=== PATIENT | female | born 1980 | race Caucasian/White ===

== ENCOUNTER 2022-07-24 10:22 | Outpatient (CLI) | payer BC, SELFPAY ==
[2022-07-24 21:46] LABS: Alanine Aminotransferase* 40 U/L (4-35); Albumin* 4.3 g/dL (3.3-5.0); Alkaline Phosphatase* 138 U/L (40-150); Aspartate Amino Transferase* 42 U/L (12-35); Bilirubin Total* 0.4 mg/dL (0.1-1.5); Blood Urea Nitrogen* 14 mg/dL (5-24); Calcium* 9.2 mg/dL (8.4-10.6); Carbon Dioxide* 26 mmol/L (20-32); Chloride* 103 mmol/L (96-114); Cholesterol* 167 mg/dL (90-199); Creatinine* 0.8 mg/dL (0.5-1.5); Estimated Glomerular Filt Rate 94 ml/min; Glucose* 96 mg/dL (60-115); HDL Cholesterol* 54 mg/dL (>=50); LDL Cholesterol Calculated 80 mg/dL (<100); Potassium* 4.3 mmol/L (3.6-5.1); Sodium* 137 mmol/L (135-149); Total Protein* 6.9 g/dL (6.0-8.3); Triglycerides* 165 mg/dL (40-149)
== END 2022-07-24 10:23 | disposition home or self-care (01) ==
PROVIDERS: PCP Physician Assistant Medical; Visit Provider Physician Assistant Medical
DX: Z00.00 Encounter for general adult medical examination without abnormal findings (principal); R53.83 Other fatigue; F41.9 Anxiety disorder, unspecified; Z13.6 Encounter for screening for cardiovascular disorders; Z13.29 Encounter for screening for other suspected endocrine disorder
CPT/HCPCS: 80053; 80061; 84443

== ENCOUNTER 2022-09-03 15:13 | Outpatient (CLI) | payer BC, SELFPAY | END 2022-09-03 15:14 | disposition home or self-care (01) | LOC: RAD 15:17 | PROVIDERS: PCP Physician Assistant Medical; Visit Provider Physician Assistant Medical | DX: Z82.49 Family history of ischemic heart disease and other diseases of the circulatory system (principal) | CPT/HCPCS: 93306; 95806 ==

== ENCOUNTER 2022-09-03 19:35 | Outpatient (CLI) | payer BC, SELFPAY ==
--- NOTE | 2022-09-09 13:01 | W.PM.SLEEP ---
Sleep Study Details Details Interpreting Provider: Ed Son MD Date of Sleep Study: 09/03/22 Sleep Study Details: STUDY TYPE:? Home ? BMI:? 35.4 ORDERING PROVIDER:? Martin INDICATION:? Concerns about sleep apnea ? SLEEP SUMMARY:? 617 monitored minutes RESPIRATORY SUMMARY:? AHI is 10.6 with minimal positional variation Low oxygen 87 0.1% of study oxygen less than 90% Snoring% 5.5 PERIODIC LIMB MOVEMENTS OF SLEEP:? Not recorded CARDIAC:? 53-96, mean 70.8 IMPRESSION:? Mild obstructive sleep apnea RECOMMENDATION: Treatment options would include CPAP AutoSet 4-17 versus dental appliance. Weight loss is also recommended
== END 2022-09-03 19:36 | disposition home or self-care (01) ==
LOC: SLEEP 19:36
PROVIDERS: PCP Physician Assistant Medical; Visit Provider Physician Assistant Medical
DX: G47.33 Obstructive sleep apnea (adult) (pediatric) (principal)
CPT/HCPCS: 95806

== ENCOUNTER 2022-11-03 08:58 | Outpatient (CLI) | payer BC, SELFPAY ==
--- NOTE | 2022-11-03 09:15 | CRLHL7_ITS ---
For Patients: As a result of the Cures Act, medical imaging exams and procedure reports are released immediately into your electronic medical record. You may view this report before your referring provider. If you have questions, please contact your health care provider. BILATERAL SCREENING MAMMOGRAM WITH COMPUTER-AIDED DETECTION AND TOMOSYNTHESIS TECHNIQUE: CC and MLO views were obtained. These mammographic images have been obtained using full-field digital technique. These mammographic images were interpreted with the benefit of computer-aided detection. Breast Tomosynthesis was used in this interpretation. COMPARISON FILM: 10/11/21, 07/13/20, 05/23/19. FINDINGS: There are scattered areas of fibroglandular density IMPRESSION: There is no radiographic evidence for malignancy. ASSESSMENT: BI-RADS Category 1: Negative RECOMMENDATION: Routine screening mammogram in 1 year. A lay language report of this examination will be provided to the patient. Gianni Hernandez M.D. Diagnostic Radiologist [email or web address] Transcribed: 1:14 p.surendra tobias/Dictated by: Gianni Hernandez MD @ 11/03/2022 12:01:00 PM (Electronically Signed)
== END 2022-11-03 08:59 | disposition home or self-care (01) ==
PROVIDERS: PCP Physician Assistant Medical; Visit Provider Physician Assistant Medical
DX: Z12.31 Encounter for screening mammogram for malignant neoplasm of breast (principal)
CPT/HCPCS: 77063; 77067

== ENCOUNTER 2022-12-31 15:20 | Emergency (ER) | payer BC, SELFPAY ==
[2022-12-31 15:34] VITALS: BP 166/87; PULSE 76; TEMP 36.1; O2SAT 99; BMI 33.7
--- NOTE | 2022-12-31 16:18 | ED_ITS ---
HPI - Nausea/Vomiting/Diarrhea General Time Seen by Provider: 16:19 Date Seen: 12/31/22 Chief complaint: Nausea/Vomiting Stated complaint: Dizzy Headache Nausia Time Seen by Provider: 12/31/22 16:17 Source: patient Mode of arrival: ambulatory Limitations: no limitations History of Present Illness HPI Narrative: Shania is a very pleasant 42-year-old female with a history of migraines who comes to the emergency room for headache, feeling weird in her head and difficulty walking. Patient states that she had the onset of a headache last night that she describes as more right sided. She states that this was not like her normal migraines that she gets and it was different. She notes that last night she felt like she was starting to get nauseated with any movement. She also notes that she was having a hard time focusing on things that were close up. Today she notes that is much worse and that with any head movement at all she feels like she is spinning. She denies the room moving around her but feels like she is moving. She states that she had to hang onto objects while she was walking. Today the headache is on the right roman catholic right side of her face and now her right ear hurts. She also notes some tingling in her head right greater than left. She denies any hearing problems are high-pitched sounds. She has not had any head trauma. She denies fever cold symptoms. She is normally a healthy person. Patient has had shingles in the past but it was on her abdomen. Her history of migraines involves with a peripheral vision loss which is not happening today. Patient denies difficulty with speech neck pain trauma fever chills cough cold congestion. She is nauseated but has not had any vomiting. No diarrhea. No limb weakness individually. Associated nausea: Yes Related Data Home Medications Medication Instructions Recorded Confirmed cetirizine 10 mg tablet 10 mg PO DAILY 07/24/22 10/20/22 ibuprofen 200 mg tablet mg PO .Qid Prn 07/24/22 10/20/22 sumatriptan succinate 50 mg tablet 50 mg PO .As Needed PRN 07/24/22 10/20/22 Previous Rx's Medication Instructions Recorded bupropion HCl 150 mg 24 hr tablet, 150 mg PO QAM #90 tabs 08/13/22 extended release amoxicillin 875 mg-potassium 1 tab PO BID #20 tabs 10/20/22 clavulanate 125 mg tablet escitalopram oxalate 10 mg tablet 10 mg PO QDAY #90 tabs 10/31/22 meclizine 25 mg tablet 25 mg PO TID PRN dizziness #30 tabs 12/31/22 Allergies Allergy/AdvReac Type Severity Reaction Status Date / Time Shellfish Allergy Severe Anaphylaxis Uncoded 10/20/22 08:34 Cefaclor AdvReac Uncoded 10/20/22 08:34 Penicillin AdvReac rash Uncoded 10/20/22 08:34 Pertussis vaccine AdvReac swelling Uncoded 10/20/22 08:34 Sulfa Antibiotics AdvReac Uncoded 10/20/22 08:34 Tetanus toxoid AdvReac swelling Uncoded 10/20/22 08:34 Review of Systems Status of ROS: Reports: 10 or more systems reviewed and unremarkable except as noted in History and below Const: Denies: fever or chills Eyes: Reports: blurry vision ENMT: Reports: vertigo; Denies: throat pain, neck pain or throat swelling Cardio: Denies: chest pain, swelling of feet/ankles or shortness of breath with exertion Resp: Denies: shortness of breath or cough GI: Reports: nausea; Denies: abdominal pain, vomiting or diarrhea : Denies: painful urination Musculo: Denies: back pain, neck pain or extremity pain Integ/Breast: Denies: rash Neuro: Reports: headache, lack of coordination (When walking) and vertigo; Denies: numbness in extremities, weakness in extremities or confusion Allergy/Immuno: Denies: throat swelling PFSH PFSH Medical History Mesenteric cyst Spina bifida occulta Surgical History History of appendectomy History of section History of cholecystectomy History of endometrial ablation History of loop electrical excision procedure (LEEP) History of ovarian cystectomy Status post laparoscopic hysterectomy Family History Paternal Grandfather Lymphoma Colorectal cancer Maternal Grandmother Hyperlipidemia High blood pressure Sister Anxiety disorder Paternal Grandmother Diabetes Social History Narrative: Social history the patient is she is a lras-da-xygb mom she has 3 children ages 17, 16, 11 She does not smoke cigarettes use other tobacco products for alcoholic beverages per week no other drugs. She does not exercise Smoking Status: Never smoker How often do you have a drink containing alcohol: never AUDIT-C Alcohol total score: 0 Non-prescribed substance use: denies use Little interest or pleasure in doing things: not at all Feeling down, depressed, or hopeless: not at all service: No Exam Narrative: Exam Narrative: Shania is alert and oriented. She is mentating normally with a GCS of 15. Head is atraumatic normocephalic. EOM is full with pupils equal round and reactive. She has extreme nystagmus when looking to the left that is reproducible. Eyebrow raise intact. TMs bilaterally without erythema. There is no evidence of vesicles or rash in that ear canals. No erythema of the ear itself. Initially there appeared to be a blanchable rash on the neck just beneath the ear but with this is noted to be also present on the left. There are no petechiae noted. Oral cavity with moist mucous membranes. Neck is supple. Heart with regular rate and rhythm and lungs are clear in all lung mejia. Abdomen soft nontender. Lower extremities without edema no calf tenderness. Eyebrow raise smile all symmetrical. Tongue is midline. Upper extremity stre ngth and motor is intact with a negative Romberg. Finger to nose bilaterally intact. Able to lift both lower extremities. I did not note any neurological deficits. However any movement of patient's head does increased symptoms. Const: Vital Signs, click to edit/add: Vital Signs - 24 hr 12/31/22 15:34 12/31/22 17:22 Temperature 96.9 F L Pulse Rate [Pulse Oximeter] 76 88 Respiratory Rate 16 Blood Pressure [Ri ght Upper Arm] 166/87 H 146/80 H Pulse Oximetry 99 97 Oxygen Delivery Me thod Room Air Room Air Course Course Hospital Course: Differential diagnosis includes but is not limited to benign positional vertigo, shingles, migraine, intracranial bleed, stroke, anxiety, meningitis, viral syndrome, arrhythmia, But will have IV placed and patient will be given Ativan 0.5 mg IV. Will proceed with head CT as patient describes wide-based gait. I am unable to get her out of bed at this time given the significant ache symptoms she is experiencing with any movement. Of note however and reassuring is that she is able to extinguished is sensation when she holds still. Will also add labs to include CBC, comprehensive panel, urinalysis, CRP, LFTs, COVID flu and RSV. Reevaluation(s) Reevaluation #1: Patient did not note significant relief with Ativan 0.5 mg. I do note that she is moving a little bit better and seems to be more conversive however. Will follow up with Benadryl 25 mg IV. Reevaluation #2: Patient does note improvement with the Benadryl. I am able to get her out of bed she is able to stand. She is able to stand with her feet closer together. Initially wide-based gait but this is more I believe not because of an ataxia because she use but because she is afraid of falling. She is able to side step stand on her tiptoes. When she was standing on her heels she did have a little bit of difficulty with balance. She is able to get herself back into bed at this time. Again, able to extinguish the feeling of spinning and movement if she keeps her head still. Vital Signs Vital signs: Initial Vital Signs Temperature 96.9 F L 12/31/22 15:34 Temperature Source Temporal Artery Scan 12/31/22 15:34 Pulse Rate 76 12/31/22 15:34 Pulse Rhythm 12/31/22 15:34 Pulse Strength 3+ Normal 12/31/22 15:34 Blood Pressure 166/87 H 12/31/22 15:34 Blood Pressure Mean 113 12/31/22 15:34 Blood Pressure Position Sitting 12/31/22 15:34 Pulse Oximetry 99 12/31/22 15:34 Oxygen Delivery Method 12/31/22 15:34 Vital Signs Temperature 96.9 F L 12/31/22 15:34 Pulse Rate 76 12/31/22 15:34 Blood Pressure 166/87 H 12/31/22 15:34 Pulse Oximetry 99 12/31/22 15:34 Oxygen Delivery Method 12/31/22 15:34 Temperature 96.9 F L 12/31/22 15:34 Pulse Rate 88 12/31/22 17:22 Respiratory Rate 16 12/31/22 17:22 Blood Pressure 146/80 H 12/31/22 17:22 Pulse Oximetry 97 12/31/22 17:22 Oxygen Delivery Method 12/31/22 17:22 MDM - Nausea/Vomiting/Diarrhea MDM Narrative Medical decision making narrative: 1. Vertigo-patient has negative head CT and improvement with Benadryl. I do believe that this is likely peripheral rather than central vertigo as she is able to extinguish symptoms with minimizing head movement. I do not note evidence of meningitis with no neck stiffness. Patient has no petechiae noted. I suspected that the facial tingling burning and ear pain may be prodromal symptoms to shingles and we did discuss this today. If she would have the onset of any vesicles or rash would want to have her seen in the emergency room for initiation of antiviral medications. Initial rash noted has faded during her times here and was bilateral. This was not a petechial rash. Patient should to continue on Benadryl this evening as needed. Meclizine 25 mg p.o. t.i.d. p.r.n. number 30 called into her pharmacy. She will have to pick this up tomorrow. She will need to avoid alcohol driving while she is using this medication. 2. Disposition-patient feels comfortable going home. She is much improved from her initial presentation with the use of Benadryl IV. She has remained afebrile with reassuring vital signs during her time here I do acknowledge she had a slight elevation of her white count and CRP but I do not find evidence of bacterial infection or suggestion of and meningitis or encephalitis at this time. However, should she have the onset of fever, worsening symptoms, vomiting, change in personality I asked that she return immediately to the ER. Her mother is here to witness our conversation today. Medical Records Attestation: I reviewed the patient's medical records. Lab Data Attestation: I reviewed the patient's lab results. Labs: Lab Results 12/31/22 12/31/22 12/31/22 Range/Units 16:46 16:47 17:05 WBC 11.42 H (4.50-11.00) K/uL RBC 4.76 (4.00-5.20) m/uL Hgb 14.6 (12.0-16.0) gm/dL Hct 43.7 (33.0-51.0) % MCV 92 (80-100) fL MCH 31 (26-34) pg MCHC 33 (32-36) gm/dL RDW Coeff of Gi 13.5 (11.5-15.5) % Plt Count 325 (140-440) K/uL Neut % (Auto) 75.4 H (42.0-72.0) % Lymph % (Auto) 16.2 L (20-44) % [place] % (Auto) 5.9 (0.0-11.0) % Eos % (Auto) 1.9 (0.0-7.0) % Baso % (Auto) 0.3 (0.0-3.0) % Neut # (Auto) 8.60 H (1.7-7.0) K/uL Lymph # (Auto) 1.90 (0.90-2.90) K/uL [place] # (Auto) 0.70 (0.00-0.90) K/UL Eos # (Auto) 0.20 (0.00-0.50) K/uL Baso # (Auto) 0.00 (0.00-0.30) K/uL Sodium (135-149) mmol/L Potassium (3.6-5.1) mmol/L Chloride (96-114) mmol/L Carbon Dioxide (20-32) mmol/L BUN (5-24) mg/dL Creatinine (0.5-1.5) mg/dL Estimated Creat Clear Estimated GFR ml/min Glucose (60-115) mg/dL Calcium (8.4-10.6) mg/dL Total Bilirubin (0.1-1.5) mg/dL AST (12-35) U/L ALT (4-35) U/L Alkaline Phosphatase (40-150) U/L C-Reactive Protein (0.5-1.0) mg/dL Total Protein (6.0-8.3) g/dL Albumin (3.3-5.0) g/dL Urine Color Yellow (Yellow) Urine Appearance Clear (Clear) Urine pH 5.5 (5.0-8.5) Ur Specific Hoffman 1.025 (1.000-1.030) Urine Protein Negative (Negative) Urine Glucose (UA) Negative (Negative) Urine Ketones Negative (Negative) Urine Blood Trace-lysed A (Negative) Urine Nitrite Negative (Negative) Urine Bilirubin Negative (Negative) Urine Urobilinogen 0.2 (0.2-1.0) Ur Leukocyte Esterase Negative (Negative) Urine RBC 0-2 (0-2) Urine WBC 0-2 (0-5) Ur Squamous Epith Cells Few (None-Few) Urine Bacteria None (None) SARS-CoV-2 (PCR) Negative SARS-CoV-2 (Negative) Influenza Type A (PCR) Negative PCR FLU A (Negative) Influenza Type B (PCR) Negative PCR FLU B (Negative) RSV (PCR) Negative PCR RSV (Negative) 12/31/22 Range/Units 17:05 WBC (4.50-11.00) K/uL RBC (4.00-5.20) m/uL Hgb (12.0-16.0) gm/dL Hct (33.0-51.0) % MCV (80-100) fL MCH (26-34) pg MCHC (32-36) gm/dL RDW Coeff of Gi (11.5-15.5) % Plt Count (140-440) K/uL Neut % (Auto) (42.0-72.0) % Lymph % (Auto) (20-44) % [place] % (Auto) (0.0-11.0) % Eos % (Auto) (0.0-7.0) % Baso % (Auto) (0.0-3.0) % Neut # (Auto) (1.7-7.0) K/uL Lymph # (Auto) (0.90-2.90) K/uL [place] # (Auto) (0.00-0.90) K/UL Eos # (Auto) (0.00-0.50) K/uL Baso # (Auto) (0.00-0.30) K/uL Sodium 138 (135-149) mmol/L Potassium 4.2 (3.6-5.1) mmol/L Chloride 110 (96-114) mmol/L Carbon Dioxide 20 (20-32) mmol/L BUN 12 (5-24) mg/dL Creatinine 0.7 (0.5-1.5) mg/dL Estimated Creat Clear 100.77 Estimated GFR 110 ml/min Glucose 108 (60-115) mg/dL Calcium 8.9 (8.4-10.6) mg/dL Total Bilirubin 0.5 (0.1-1.5) mg/dL AST 29 (12-35) U/L ALT 36 H (4-35) U/L Alkaline Phosphatase 131 (40-150) U/L C-Reactive Protein 2.1 H (0.5-1.0) mg/dL Total Protein 7.6 (6.0-8.3) g/dL Albumin 4.4 (3.3-5.0) g/dL Urine Color (Yellow) Urine Appearance (Clear) Urine pH (5.0-8.5) Ur Specific Hoffman (1.000-1.030) Urine Protein (Negative) Urine Glucose (UA) (Negative) Urine Ketones (Negative) Urine Blood (Negative) Urine Nitrite (Negative) Urine Bilirubin (Negative) Urine Urobilinogen (0.2-1.0) Ur Leukocyte Esterase (Negative) Urine RBC (0-2) Urine WBC (0-5) Ur Squamous Epith Cells (None-Few) Urine Bacteria (None) SARS-CoV-2 (PCR) (Negative) Influenza Type A (PCR) (Negative) Influenza Type B (PCR) (Negative) RSV (PCR) (Negative) Imaging Data CT scan - head: Attestation: I have reviewed the pertinent imaging results. My impression: I note no acute findings including no evidence of intracranial bleed. Radiologist's impression: CSF spaces: Within normal limits for age. Brain parenchyma: The tobias-white differentiation is normal. No sign of mass, hemorrhage, or midline shift. Skull base and calvarium: The visualized paranasal sinuses and mastoid air cells demonstrate no acute or significant findings. The visualized orbits are grossly unremarkable. No skull fractures. IMPRESSION: Unremarkable noncontrast head CT. ECG Data Interpretation: conveyor monitor without evidence of ectopy or abnormality. Discharge Plan Discharge Clinical Impression: Vertigo Patient Disposition: Home, Self-Care Additional Instructions: Apologies that we do not have meclizine in our [facility] meds machine. You may use Benadryl 25-50 mg or 1-2 tablets every 6 hours as needed for dizziness. Slow movement of the head prior to getting up from sitting or lying down position. Recommend use of meclizine as needed for vertigo-prescription sent to [facility]. Do not use alcohol or drive during the spells. Return or seek medical attention for worsening symptoms, especially fever change in personality, balance issues and as needed. Prescriptions: New meclizine 25 mg tablet 25 mg PO TID PRN (Reason: dizziness) Qty: 30 0RF No Action cetirizine 10 mg tablet 10 mg PO DAILY ibuprofen 200 mg tablet PO .Qid Prn sumatriptan succinate 50 mg tablet 50 mg PO .As Needed PRN Rx Instructions: ONE TAB AT ONSET OF HEADACHE, MAY REPEAT Q2H PRN, MAX 200 MG/24 HRS bupropion HCl 150 mg tablet extended release 24 hr 150 mg PO QAM Qty: 90 1RF Rx Instructions: once daily for mood amoxicillin-pot clavulanate 875-125 mg tablet 1 tab PO BID Qty: 20 0RF escitalopram oxalate 10 mg tablet 10 mg PO QDAY Qty: 90 0RF Rx Instructions: once daily for mod Follow Up/Referrals: Riana Salazar PA-C [Primary Care Provider] - Stand Alone Forms: [employer] Info Instructions
--- NOTE | 2022-12-31 16:37 | CRLHL7_ITS ---
For Patients: As a result of the Century Cures Act, medical imaging exams and procedure reports are released immediately into your electronic medical record. You may view this report before your referring provider. If you have questions, please contact your health care provider. INDICATION: Vertigo TECHNIQUE: CT head without contrast. COMPARISON: None FINDINGS: CSF spaces: Within normal limits for age. Brain parenchyma: The tobias-white differentiation is normal. No sign of mass, hemorrhage, or midline shift. Skull base and calvarium: The visualized paranasal sinuses and mastoid air cells demonstrate no acute or significant findings. The visualized orbits are grossly unremarkable. No skull fractures. IMPRESSION: Unremarkable noncontrast head CT. Dictated by Gianni Gentile MD @ 12/31/2022 5:30:31 PM Please note that all CT scans at this facility use dose modulation, iterative reconstruction, and/or weight-based dosing when appropriate to reduce radiation dose to as low as reasonably achievable. Dictated by: Gianni Gentile MD @ 12/31/2022 17:30:36 (Electronically Signed)
[2022-12-31 16:53] LABS: Appearance Urine Clear (Clear); Bilirubin Urine Negative (Negative); Blood Urine Trace-lysed (Negative); Color Urine Yellow (Yellow); Glucose Urine Negative (Negative); Ketones Urine Negative (Negative); Leukocyte Esterase Urine Negative (Negative); Nitrite Urine Negative (Negative); Protein Urine Negative (Negative); Specific Gravity Urine 1.025 (1.000-1.030); Urobilinogen Urine 0.2 (0.2-1.0); pH Urine 5.5 (5.0-8.5)
[2022-12-31 17:03] LABS: RBC Urine 0-2 (0-2); WBC Urine 0-2 (0-5)
[2022-12-31 17:04] LABS: Squamous Epithelial Cell Urine Few (None-Few)
[2022-12-31 17:18] LABS: Basophils Percent Auto 0.3 % (0.0-3.0); Eosinophils Percent Auto 1.9 % (0.0-7.0); Hematocrit 43.7 % (33.0-51.0); Hemoglobin* 14.6 gm/dL (12.0-16.0); Immature Granulocytes Pct Auto 0.3 %; Lymphocytes Percent Auto 16.2 % (20-44); Mean Corpuscular HGB Conc 33 gm/dL (32-36); Mean Corpuscular Hemoglobin 31 pg (26-34); Mean Corpuscular Volume 92 fL (80-100); Monocytes Percent Auto 5.9 % (0.0-11.0); Neutrophils Percent Auto 75.4 % (42.0-72.0); Platelet Count* 325 K/uL (140-440); RDW Coefficient of Variation % 13.5 % (11.5-15.5); Red Blood Count 4.76 m/uL (4.00-5.20); Slide Review Reflex No; White Blood Count* 11.42 K/uL (4.50-11.00)
[2022-12-31] MEDS: 0.9 % SODIUM CHLORIDE 1000 ml 1,000 ML IV (17:19)
[2022-12-31] MEDS: LORazepam 2 MG/ML inj 0.5 MG IVP (17:20)
[2022-12-31 17:22] VITALS: BP 146/80; PULSE 88; RESP 16; O2SAT 97
[2022-12-31 17:35] LABS: PCR FLU A Negative PCR FLU A (Negative); PCR FLU B Negative PCR FLU B (Negative); PCR RSV Negative PCR RSV (Negative)
[2022-12-31 17:37] LABS: Albumin* 4.4 g/dL (3.3-5.0); Chloride* 110 mmol/L (96-114); Sodium* 138 mmol/L (135-149)
[2022-12-31 17:37] LABS: SARS PCR* Negative SARS-CoV-2 (Negative)
[2022-12-31 17:38] LABS: Potassium* 4.2 mmol/L (3.6-5.1)
[2022-12-31 17:40] LABS: Alkaline Phosphatase* 131 U/L (40-150); Aspartate Amino Transferase* 29 U/L (12-35); Bilirubin Total* 0.5 mg/dL (0.1-1.5); Carbon Dioxide* 20 mmol/L (20-32); Creatinine* 0.7 mg/dL (0.5-1.5); Est. Creatinine Clearance* 100.77; Estimated Glomerular Filt Rate 110 ml/min; Total Protein* 7.6 g/dL (6.0-8.3)
[2022-12-31 17:41] LABS: Alanine Aminotransferase* 36 U/L (4-35); Blood Urea Nitrogen* 12 mg/dL (5-24); Calcium* 8.9 mg/dL (8.4-10.6); Glucose* 108 mg/dL (60-115)
[2022-12-31 17:43] LABS: C Reactive Protein* 2.1 mg/dL (0.5-1.0)
[2022-12-31] MEDS: diphenhydrAMINE 50 MG/ML inj 25 MG IVP (18:05)
== END 2022-12-31 19:29 | disposition home or self-care (01) ==
PROVIDERS: Emergency Provider Family Medicine; PCP Physician Assistant Medical
DX: R42 Dizziness and giddiness (principal)
CPT/HCPCS: 36415; 70450; 80053; 81001; 85025; 86140; 87502; 87634; 87635; 99284; 99285; J1200; J2060; J7030

== ENCOUNTER 2023-02-03 09:00 | Outpatient (CLI) | payer BC, SELFPAY ==
--- NOTE | 2023-02-03 09:15 | CRLHL7_ITS ---
For Patients: As a result of the Century Cures Act, medical imaging exams and procedure reports are released immediately into your electronic medical record. You may view this report before your referring provider. If you have questions, please contact your health care provider. Indication: Vertigo. Headache. Technique: Multiplanar, multisequence MRI of the brain was performed without intravenous contrast. Comparison: CT head 12/31/2022. Findings: The corpus callosum, clivus and craniocervical junction appear intact. Partially empty sella morphology. Possible flattening of the posterior sclera. Optic nerve sheaths are without tortuosity There is no restricted diffusion. No intracranial hemorrhage. The ventricles are proportionate to the cerebral sulci. The 4th ventricle appears midline. The basal cisterns appear patent. No abnormal extra-axial fluid collection identified. Nonspecific T2 FLAIR hyperintensity along the left frontal periventricular white matter near the frontal horn of the lateral ventricle. There is no intracranial mass, abnormal mass-effect or midline shift identified. Major intracranial vascular flow voids appear grossly intact. Both globes are preserved. Impression: 1. Nonspecific partially empty sella morphology, with possible flattening of the posterior sclera of the globes. Constellation of findings may suggest the possibility of intracranial hypertension in the appropriate clinical scenario. Consider lumbar puncture with opening pressure measurement as indicated. 2. Nonspecific T2 FLAIR white matter hyperintensity along the frontal horn of the left lateral ventricle. Differential considerations include sequela of migraine headaches, chronic ischemic microvascular disease or other nonspecific gliosis. 3. No acute/subacute infarct. Dictated by Zohaib Jackson MD @ 02/03/2023 7:41:21 PM (Electronically Signed)
== END 2023-02-03 09:01 | disposition home or self-care (01) ==
LOC: MRI 09:00
PROVIDERS: PCP Physician Assistant Medical; Visit Provider Physician Assistant Medical
DX: R42 Dizziness and giddiness (principal); R51.9 Headache, unspecified
CPT/HCPCS: 70551

== ENCOUNTER 2023-02-18 08:19 | Outpatient (CLI) | payer BC, SELFPAY | END 2023-02-18 08:20 | disposition home or self-care (01) | PROVIDERS: PCP Physician Assistant Medical; Visit Provider Physician Assistant Medical | DX: E66.9 Obesity, unspecified (principal); I10 Essential (primary) hypertension; R53.83 Other fatigue; R90.89 Other abnormal findings on diagnostic imaging of central nervous system | CPT/HCPCS: 82164; 84590; 86140 ==

== ENCOUNTER 2023-08-17 15:49 | Outpatient (CLI) | payer BC, SELFPAY | END 2023-08-17 15:50 | disposition home or self-care (01) | LOC: NFLDREF 08-19 11:26 | PROVIDERS: PCP Physician Assistant Medical; Referring Provider Physician Assistant Medical; Visit Provider Physician Assistant Medical | DX: G93.2 Benign intracranial hypertension (principal) | CPT/HCPCS: 80048 ==

== ENCOUNTER 2023-11-27 15:14 | Outpatient (CLI) | payer BC, SELFPAY ==
--- NOTE | 2023-11-27 15:20 | CRLHL7_ITS ---
For Patients: As a result of the Century Cures Act, medical imaging exams and procedure reports are released immediately into your electronic medical record. You may view this report before your referring provider. If you have questions, please contact your health care provider. BILATERAL SCREENING MAMMOGRAM WITH COMPUTER-AIDED DETECTION AND TOMOSYNTHESIS TECHNIQUE: CC and MLO views were obtained. These mammographic images have been obtained using full-field digital technique. These mammographic images were interpreted with the benefit of computer-aided detection. Breast Tomosynthesis was used in this interpretation. COMPARISON FILM: 11/03/22, 10/11/21, 07/13/20. FINDINGS: The breasts are heterogeneously dense, which may obscure small masses IMPRESSION: There is no radiographic evidence for malignancy. ASSESSMENT: BI-RADS Category 1: Negative RECOMMENDATION: Routine screening mammogram in 1 year. A lay language report of this examination will be provided to the patient. Gianni Hernandez M.D. Diagnostic Radiologist [email or web address] Transcribed: 4:52 p.surendra tobias/Dictated by: Gianni Hernandez MD @ 12/02/2023 11:50:00 AM (Electronically Signed)
== END 2023-11-27 15:15 | disposition home or self-care (01) ==
LOC: MAMMO 15:14
PROVIDERS: PCP Physician Assistant Medical; Visit Provider Physician Assistant Medical
DX: Z12.31 Encounter for screening mammogram for malignant neoplasm of breast (principal); R92.2 Inconclusive mammogram
CPT/HCPCS: 77063; 77067

== ENCOUNTER 2023-12-14 11:16 | Outpatient (CLI) | payer BC, SELFPAY | END 2023-12-14 11:17 | disposition home or self-care (01) | PROVIDERS: PCP Physician Assistant Medical; Visit Provider Physician Assistant Medical | DX: L65.8 Other specified nonscarring hair loss (principal); E66.9 Obesity, unspecified; Z79.899 Other long term (current) drug therapy | CPT/HCPCS: 82306; 82670; 82728; 84146; 84403; 84439; 84443; 84481; 86140; 86376 ==

== ENCOUNTER 2024-06-01 15:11 | Outpatient (CLI) | payer BC, SELFPAY ==
--- NOTE | 2024-07-12 08:30 | W.PM.SLEEP ---
Sleep Study Details Details Interpreting Provider: Adelaida Date of Sleep Study: 06/01/24 Sleep Study Details: STUDY TYPE:? [Home unattended ? BMI:? 30.1 ORDERING PROVIDER:? Adelaida INDICATION:? Concerned about sleep apnea ? SLEEP SUMMARY:? 494 minutes monitored RESPIRATORY SUMMARY:? AHI 9.1 Low oxygen 86 0.5% of study oxygen less than 90% Snoring 92% PERIODIC LIMB MOVEMENTS OF SLEEP:? Not recorded CARDIAC:? Range 64-101, mean 75.5 IMPRESSION:? Mild obstructive sleep apnea RECOMMENDATION: Treatment options include CPAP dental appliance and/or airway expansion surgery.
== END 2024-06-01 15:12 | disposition home or self-care (01) ==
LOC: SLEEP 15:12
PROVIDERS: PCP Physician Assistant Medical; Visit Provider Otolaryngology
DX: G47.33 Obstructive sleep apnea (adult) (pediatric) (principal)
CPT/HCPCS: 95806

== ENCOUNTER 2024-12-28 08:12 | Outpatient (CLI) | payer BC, SELFPAY | END 2024-12-28 08:13 | disposition home or self-care (01) | LOC: NFLDREF 12-31 01:56 | PROVIDERS: PCP Physician Assistant Medical; Referring Provider Physician Assistant Medical; Visit Provider Physician Assistant Medical | DX: I10 Essential (primary) hypertension (principal); Z13.220 Encounter for screening for lipoid disorders; Z13.29 Encounter for screening for other suspected endocrine disorder | CPT/HCPCS: 80053; 80061; 84443 ==

== ENCOUNTER 2025-02-27 08:24 | Outpatient (CLI) | payer BC, SELFPAY ==
--- NOTE | 2025-02-27 08:45 | CRLHL7_ITS ---
For Patients: As a result of the Century Cures Act, medical imaging exams and procedure reports are released immediately into your electronic medical record. You may view this report before your referring provider. If you have questions, please contact your health care provider. INDICATION: BILATERAL SCREENING MAMMOGRAM, ASYMPTOMATIC 45 Y/O FEMALE COMPARISON: 11/27/23, 11/03/22, 10/11/21 TECHNIQUE: CC and MLO views were obtained. These mammographic images have been obtained using full-field digital technique. These mammographic images were interpreted with the benefit of computer aided detection and tomosynthesis. BREAST COMPOSITION: There are scattered areas of fibroglandular density. FINDINGS: No suspicious findings. ASSESSMENT: BI-RADS 1 Negative RECOMMENDATION: Annual screening mammogram. A lay language report of this examination will be provided to the patient. Dictated by: Gianni Hernandez MD @ 03/06/2025 13:30:20 (Electronically Signed)
== END 2025-02-27 08:25 | disposition home or self-care (01) ==
LOC: MAMMO 08:24
PROVIDERS: PCP Physician Assistant Medical; Visit Provider Physician Assistant Medical
DX: Z12.31 Encounter for screening mammogram for malignant neoplasm of breast (principal)
CPT/HCPCS: 77063; 77067

== ENCOUNTER 2025-06-12 15:46 | Outpatient (CLI) | payer BC, SELFPAY | END 2025-06-12 15:47 | disposition home or self-care (01) | PROVIDERS: PCP Physician Assistant Medical; Visit Provider Physician Assistant Medical | DX: R23.2 Flushing (principal); R53.83 Other fatigue; Z79.899 Other long term (current) drug therapy; Z13.0 Encounter for screening for diseases of the blood and blood-forming organs and certain disorders involving the immune mechanism | CPT/HCPCS: 82306; 82607; 82728; 83001; 83520; 83540; 83550; 84439; 84443; 84481 ==